=== PATIENT | female | born 1970 | race Caucasian/White ===

== ENCOUNTER 2023-10-15 09:00 | Outpatient (RCR) | payer BC, SELFPAY | END 2024-02-12 23:59 | disposition home or self-care (01) | PROVIDERS: PCP Physician Assistant Medical; Visit Provider Physician Assistant Medical | DX: N39.46 Mixed incontinence (principal); R27.8 Other lack of coordination; R35.0 Frequency of micturition; Z51.89 Encounter for other specified aftercare | CPT/HCPCS: 97110; 97140; 97162; 97535 ==